=== PATIENT | male | born 1955 | race Caucasian/White ===

== ENCOUNTER 2022-07-21 08:41 | Inpatient (IN) ==
[2022-07-21] MEDS ORDERED: NS 1,000 ML IV 1,000 ML IV SCH (09:00)
[2022-07-21 13:54] LABS: BASOPHILS # (AUTO) 0.1 X10^3/uL (0.0-0.1); BASOPHILS % (AUTO) 0.8 % (0.2-1.0); EOSINOPHILS # (AUTO) 0.1 x10^3/uL (0.0-0.2); EOSINOPHILS % (AUTO) 0.5 % (0.9-2.9); HEMATOCRIT 32.9 % (42.0-54.0); HEMOGLOBIN 11.3 g/dL (13.5-18.0); LYMPHOCYTES # (AUTO) 1.9 X10^3/uL (1.3-2.9); LYMPHOCYTES % (AUTO) 16.8 % (21.0-51.0); MEAN CORPUSCULAR HEMOGLOBIN 28.3 pg (27.0-34.0); MEAN CORPUSCULAR HGB CONC 34.4 g/dL (33.0-35.0); MEAN CORPUSCULAR VOLUME 82.3 fL (80.0-100.0); MEAN PLATELET VOLUME 6.1 fL (7.4-11.0); MONOCYTES # (AUTO) 0.8 x10^3/uL (0.3-0.8); MONOCYTES % (AUTO) 6.9 % (0.0-13.0); NEUTROPHILS # (AUTO) 8.3 x10^3/uL (2.2-4.8); RED BLOOD COUNT 3.99 X10^6/uL (4.7-6.0); RED CELL DISTRIBUTION WIDTH 15.4 % (11.6-16.5); WHITE BLOOD COUNT 11.1 X10^3/uL (3.6-10.0)
[2022-07-21 14:13] LABS: PLATELET MORPHOLOGY COMMENT NORMAL (NORMAL)
[2022-07-21 14:15] LABS: ALANINE AMINOTRANSFERASE 12 Units/L (12-78); ALBUMIN 2.7 g/dL (3.4-5.0); ALKALINE PHOSPHATASE 46 Units/L (46-116); ASPARTATE AMINO TRANSFERASE 21 Units/L (15-37); BLOOD UREA NITROGEN 22 mg/dL (7-18); CALCIUM 10.1 mg/dL (8.5-10.1); CARBON DIOXIDE 28.6 mmol/L (21-32); CHLORIDE 100 mmol/L (98-107); COR CA(FOR HYPOALB) 11.1 mg/dL (8.5-10.1); CREATININE 1.09 mg/dL (0.70-1.30); FREE T4 (FREE THYROXINE) 1.34 ng/dL (0.76-1.46); MAGNESIUM 1.7 mg/dL (2.0-2.9); SODIUM 135 mmol/L (136-145); TOTAL PROTEIN 7.3 g/dL (6.4-8.2); TSH (3RD GENERATION) 0.986 uIU/mL (0.358-3.74); eGFR NON BLACK RACES > 60 (>60)
--- NOTE | 2022-07-21 14:45 | RAD ---
Chest PA and lateralIndication: Lung mass. Back pain and weight lossCOMPARISONNo recent priorFINDINGSThere is left lung opacity, probably with a component of effusion. Stent projects over the left upper chest. Left hemidiaphragm is elevated suggesting some component of atelectasis. Right lung is relatively clear. No pneumothorax seenIMPRESSIONVolume loss on the left with dense opacification, particular in left lower lobe. Underlying mass possible. Effusion possible. CT chest follow-up recommended.Electronically signed by: NIDIA MALDONADO (Jul 21, 2022 14:43:27)
[2022-07-21 15:46] LABS: BILIRUBIN,URINE NEGATIVE (NEGATIVE); BLOOD/HEMOGLOBIN,URINE NEGATIVE (NEGATIVE); GLUCOSE, URINE NEGATIVE (NEGATIVE); KETONES,URINE NEGATIVE (NEGATIVE); LEUKOCYTE ESTERASE ,URINE NEGATIVE (NEGATIVE); NITRITES,URINE NEGATIVE (NEGATIVE); PROTEIN,URINE NEGATIVE (NEGATIVE); UROBILINOGEN,URINE NORMAL (NORMAL)
[2022-07-21 15:53] LABS: APPEARANCE,URINE CLEAR (CLEAR); COLOR,URINE STRAW (YELLOW)
[2022-07-21] MEDS ORDERED: TORADOL 30 MG VIAL IVP ONE (16:20)
[2022-07-21] MEDS: PriLOSEC PO SCH ×2 (18:09→19:17)
[2022-07-21] MEDS: ZESTRIL TAB 20 MG PO SCH ×2 (18:10→19:17)
[2022-07-21] MEDS ORDERED: ZESTRIL TAB 20 MG ONE (19:13)
--- NOTE | 2022-07-21 19:44 | CT ---
HISTORYBack pain/lung mass.br.br.br.br.br CONCOMPARISONTECHNIQUEMultiple axial images of the abdomen and pelvis were obtained from the lung bases to the pubic symphysis after the administration of IV contrast. Dose reduction techniques including Automated Exposure Control (AEC) and adjustment of mA and kV were utilized.FINDINGSChest findings will be dictated under separate report. The stomach is grossly unremarkable. There is mild diffuse fatty infiltration of the liver. No liver metastasis is identified. Gallbladder, pancreas, spleen are normal. The right adrenal gland is normal. There is a low-density lesion in the left adrenal which is probably adenoma measuring up to 1.9 x 2.8 cm in size. The kidneys are normal in size and enhancement without mass, stone, or hydronephrosis. There is heterogeneous plaque in the abdominal aorta but no flow limiting stenosis. There is some prominence of the distal small bowel which measures up to 3.1 cm in diameter. The appendix is normal. There is prominence of the cecum and transverse colon filled with air and stool but without focal obstruction or transition point. The urinary bladder is normal and the prostate is normal in size. There is no worrisome bone marrow lesion. There is degeneration in the spine and in the hips.IMPRESSION1. Nonspecific prominence of small and large bowel loops filled with contrast, gas, and stool. The pattern is suggestive of ileus as there is no evidence for obstruction.2. Mild fatty infiltration of the liver.3. 1.9 x 2.8 cm left adrenal adenoma.4. Moderate to severe systemic atherosclerosis.Electronically signed by: José Luis Zaragoza (Jul 21, 2022 19:42:30)
--- NOTE | 2022-07-21 19:52 | CT ---
HISTORYBack pain/lung mass.br.br.br.br.br CONCOMPARISONRadiographs from July 21, 2022 at 11:[address] images of the chest were obtained after the administration of 100 mL Omnipaque 350 IV contrast. Images were reformatted into the coronal and sagittal planes for further evaluation.Radiation dose: 375.19 mGy-cm total DLPFINDINGSIll-defined masslike density in the left hilar region which obstructs the distal main bronchi as well as the bronchi to the upper lobe, lingula and left lower lobe.Adenopathy in the AP window, adjacent to the anterior/left margin of the trachea and in the left hilar region; individual lymph nodes are not well delineated. Left upper mediastinal lymph node measuring 2.1 cm on axial image 10. Subcarinal lymph node measuring 2.2 cm on axial image 24. Left infrahilar lymph node measuring 2 cm on axial image 24.Moderate left pleural effusion.Left pulmonary artery is narrowed through the left hilum; with no filling defect.Atelectasis in the left lower lobe.Decreased attenuation in the left upper lobe with flocculent material within the majority of the left upper lobe.Superior segment of the left lower lobe remains aerated.Right lung is clear.No pneumothorax.Left adrenal adenoma.Otherwise, the limited evaluation of is unremarkable.IMPRESSION1. Findings are consistent with a left hilar mass with metastatic adenopathy in the left hilum and mediastinum.2. Nonspecific moderate left pleural effusion.3. Atelectasis in the left lower lobe. Low-attenuation of the consolidated left upper lobe with flocculent areas within the majority of the left upper lobe is concerning for postobstructive necrotizing pneumonia.4. Left adrenal adenoma.Electronically signed by: Ilya Mckeon (Jul 21, 2022 19:50:40)
[2022-07-21] MEDS: NORCO 7.5/325 MG TAB PO PRN (22:28)
[2022-07-22] MEDS: NORCO 7.5/325 MG TAB PO PRN ×3 (04:21→18:43)
[2022-07-22 04:58] LABS: BASOPHILS # (AUTO) 0.1 X10^3/uL (0.0-0.1); BASOPHILS % (AUTO) 1.2 % (0.2-1.0); EOSINOPHILS % (AUTO) 0.4 % (0.9-2.9); HEMATOCRIT 30.9 % (42.0-54.0); HEMOGLOBIN 10.6 g/dL (13.5-18.0); LYMPHOCYTES # (AUTO) 2.4 X10^3/uL (1.3-2.9); LYMPHOCYTES % (AUTO) 21.7 % (21.0-51.0); MEAN CORPUSCULAR HEMOGLOBIN 28.3 pg (27.0-34.0); MEAN CORPUSCULAR HGB CONC 34.4 g/dL (33.0-35.0); MEAN CORPUSCULAR VOLUME 82.5 fL (80.0-100.0); MEAN PLATELET VOLUME 6.4 fL (7.4-11.0); MONOCYTES # (AUTO) 0.8 x10^3/uL (0.3-0.8); MONOCYTES % (AUTO) 7.5 % (0.0-13.0); NEUTROPHILS # (AUTO) 7.7 x10^3/uL (2.2-4.8); NEUTROPHILS % (AUTO) 69.2 % (42.0-75.0); RED BLOOD COUNT 3.75 X10^6/uL (4.7-6.0); RED CELL DISTRIBUTION WIDTH 15.4 % (11.6-16.5); WHITE BLOOD COUNT 11.1 X10^3/uL (3.6-10.0)
[2022-07-22 05:11] LABS: ALANINE AMINOTRANSFERASE 11 Units/L (12-78); ALBUMIN 2.4 g/dL (3.4-5.0); ALKALINE PHOSPHATASE 40 Units/L (46-116); ASPARTATE AMINO TRANSFERASE 22 Units/L (15-37); BLOOD UREA NITROGEN 20 mg/dL (7-18); CALCIUM 9.4 mg/dL (8.5-10.1); CARBON DIOXIDE 26.5 mmol/L (21-32); CHLORIDE 101 mmol/L (98-107); COR CA(FOR HYPOALB) 10.7 mg/dL (8.5-10.1); CREATININE 1.06 mg/dL (0.70-1.30); SODIUM 137 mmol/L (136-145); TOTAL PROTEIN 6.7 g/dL (6.4-8.2); eGFR NON BLACK RACES > 60 (>60)
[2022-07-22] MEDS ORDERED: NS 1,000 ML IV 1,000 ML IV SCH (08:00)
[2022-07-22] MEDS ORDERED: PROVENTIL NEB TX 0.083% 2.5MG/ 3ML ONE (08:08)
[2022-07-22] MEDS ORDERED: SALINE 3% 15 ML NEB TX ONE (08:14)
[2022-07-22] MEDS ORDERED: ZESTRIL TAB 20 MG ONE (08:50)
[2022-07-22] MEDS: LIPITOR TAB 80 MG PO SCH (08:57)
[2022-07-22] MEDS: ZESTRIL TAB 20 MG PO SCH ×2 (08:57→09:00)
[2022-07-22] MEDS: TRICOR TAB 48 MG PO SCH (08:57)
[2022-07-22] MEDS: PriLOSEC PO SCH (08:57)
[2022-07-22] MEDS ORDERED: PROVENTIL NEB TX 0.083% 2.5MG/ 3ML NEB SCH (09:00)
--- NOTE | 2022-07-22 09:01 | DR.H&P ---
H&P - History & Physical for Day of: H&P Date: 07/21/22 - Chief Complaint Chief Complaint: Weight loss, bone pain, fatigue, loss of appetite - History of Present Illness History of Present Illness: The patient is a 67-year-old white male who presents to the [facility] secondary to complaints of having with increased fatigue with lack of appetitie and bone pain. Patient was recently diagnosed with an ill-defined left hilar mass. Workup is pending. Patient was having issues with constipation at times as well. Patient at this time is noted to have lost 8 pounds within a two-week period. Patient states he does not have an appetite. states that he is making himself go to work. That is exhausted at the end of the day. Patient states that he feels bad. Is agreeable for admission. Family history does include father and sister having colon cancer and mother having lung cancer. - Past Medical History Past Medical History: Arthritis, Coronary Artery Disease, Dyslipidemia, Hypertension Additional Medical History: PVD, LUNG MASS - Past Surgical History Surgical History: Angioplasty/Stents - Family History Family Medical History: Cancer, [place] - Social History Does patient currently use any type of tobacco product: Yes Have you used tobacco products in the last 12 months: Yes Type of Tobacco Use: Cigarettes How many years tobacco product used: 53 Does any household member use tobacco: No Alcohol Use: None Drug Use: None Risks, benefits, and alternatives of opioids discussed: No Prescription drug monitoring program results: PDMP reviewed and no concerns identified - Medications Home Medications: No Known Drug Allergies Allergy (Verified 03/24/21 08:40) CONTINUE taking the following medications atorvastatin 80 mg tablet 1 tab PO QDAY 07/21/22 [History] fenofibrate micronized 200 mg capsule 1 cap PO QDAY 07/21/22 [History] lisinopril 20 mg tablet 1 tab PO QDAY 07/21/22 [History] naproxen 500 mg tablet 1 tab PO BID 07/21/22 [History] omeprazole 40 mg capsule,delayed release 1 cap PO QDAY 07/21/22 [History] - Review of Systems Constitutional: Weakness, Malaise Eyes: No Symptoms Reported ENT: No Symptoms Reported Respiratory: Shortness of Breath Cardiovascular: No Symptoms Reported Gastrointestinal: Other (Loss of appetite) Genitourinary: No Symptoms Reported Musculoskeletal: Shoulder Pain, Back Pain Skin: No Symptoms Reported Neurological: No Symptoms Reported - Physical Exam Vital Signs: Temperature 98.4 F Pulse Rate 89 Respiratory Rate 27 Blood Pressure 125/73 O2 Sat by Pulse Oximetry 91 Oriented: Normal, Time, Person, Place Eyes: Normal Ear: Normal Nose: Normal Throat: Normal Respiratory: LLL Diminished Cardiovascular: Normal : Normal Auscultation: Bowel Sounds: Normal Palpation: Normal Tenderness: Normal Skin: Decreased Turgur Musculoskeletal: Normal Psychiatric: Depression Mood Description: Calm Affect: Normal Speech Pattern: Clear - Assessment/Plan (1) Lung mass Status: Acute Plan: CT Lung/Abd (2) Loss of appetite Status: Acute Plan: Labs, IV Hydration (3) Bone pain Status: Acute (4) Elevated carcinoembryonic antigen (CEA) Status: Acute Plan: 57.4 - Review H&P Reviewed: Yes Patient was examined?: Yes - Allergies Allergies/Adverse Reactions: Allergies Allergy/AdvReac Type Severity Reaction Status Date / Time No Known Drug Allergies Allergy Verified 03/24/21 08:40
[2022-07-22] MEDS: LOVENOX INJ 40 MG SYR SC SCH (09:06)
[2022-07-22 09:07] LABS: ABG BASE EXCESS 4.4 mmol/L (-2.0-2.0); ABG HCO3 28.4 mmol/L (22-26)
[2022-07-22] MEDS: ZOSYN VIAL 4.5 GRAMS 4.5 G in NS 100 ML IV 100 ML IV SCH ×3 (09:30→21:00)
[2022-07-22] MEDS: PROVENTIL NEB TX 0.083% 2.5MG/ 3ML NEB SCH ×3 (11:58→18:10)
[2022-07-22 12:23] VITALS: BMI 20.3
--- NOTE | 2022-07-22 15:57 | MRI ---
HISTORYmetastatic disease. Lung mass.STUDYBRAIN W W/O CONCOMPARISONNoneTECHNIQUEMultiplanar multisequence MRI of the brain was obtained without and with contrast using standard departmental protocol.FINDINGSDiffusion sequences show no abnormal signal. No evidence for acute ischemia.Cohn and white matter have normal differentiation. There is no mass, shift, or hemorrhage. Cerebellar tonsils are at an appropriate level.There is normal signal flow void in the central vessels. No abnormal signal on susceptibility sequences.Mucosal thickening seen in the right maxillary sinus may indicate chronic sinusitis. There is no fluid to suggest acute sinusitis. No mastoid effusion.With contrast, there is no abnormal enhancement. No evidence for metastatic disease.IMPRESSION1. No evidence for metastatic disease2. No acute finding3. Chronic right maxillary sinusitisElectronically signed by: Mane Pedersen (Jul 22, 2022 15:55:06)
[2022-07-22] MEDS: PULMICORT NEB TX 0.5 MG NEB SCH (21:45)
[2022-07-23] MEDS: PROVENTIL NEB TX 0.083% 2.5MG/ 3ML NEB SCH ×3 (00:10→12:02)
[2022-07-23] MEDS: NORCO 7.5/325 MG TAB PO PRN ×2 (00:30→08:48)
[2022-07-23] MEDS: ZOSYN VIAL 4.5 GRAMS 4.5 G in NS 100 ML IV 100 ML IV SCH ×2 (05:08→14:16)
[2022-07-23 05:24] LABS: BASOPHILS # (AUTO) 0.1 X10^3/uL (0.0-0.1); LYMPHOCYTES # (AUTO) 2.4 X10^3/uL (1.3-2.9); RED BLOOD COUNT 3.72 X10^6/uL (4.7-6.0)
[2022-07-23 05:28] LABS: BASOPHILS % (AUTO) 1.2 % (0.2-1.0); EOSINOPHILS % (AUTO) 0.4 % (0.9-2.9); HEMATOCRIT 30.6 % (42.0-54.0); HEMOGLOBIN 10.4 g/dL (13.5-18.0); LYMPHOCYTES % (AUTO) 21.6 % (21.0-51.0); MEAN CORPUSCULAR HEMOGLOBIN 27.8 pg (27.0-34.0); MEAN CORPUSCULAR HGB CONC 33.8 g/dL (33.0-35.0); MEAN CORPUSCULAR VOLUME 82.3 fL (80.0-100.0); MEAN PLATELET VOLUME 6.6 fL (7.4-11.0); MONOCYTES % (AUTO) 9.3 % (0.0-13.0); NEUTROPHILS # (AUTO) 7.5 x10^3/uL (2.2-4.8); NEUTROPHILS % (AUTO) 67.5 % (42.0-75.0); RED CELL DISTRIBUTION WIDTH 15.2 % (11.6-16.5); WHITE BLOOD COUNT 11.1 X10^3/uL (3.6-10.0)
[2022-07-23 05:40] LABS: ALANINE AMINOTRANSFERASE 10 Units/L (12-78); ALBUMIN 2.3 g/dL (3.4-5.0); ALKALINE PHOSPHATASE 42 Units/L (46-116); ASPARTATE AMINO TRANSFERASE 26 Units/L (15-37); BLOOD UREA NITROGEN 18 mg/dL (7-18); CALCIUM 9.3 mg/dL (8.5-10.1); CARBON DIOXIDE 27.9 mmol/L (21-32); CHLORIDE 99 mmol/L (98-107); COR CA(FOR HYPOALB) 10.7 mg/dL (8.5-10.1); CREATININE 1.06 mg/dL (0.70-1.30); MAGNESIUM 1.6 mg/dL (2.0-2.9); SODIUM 137 mmol/L (136-145); TOTAL PROTEIN 6.6 g/dL (6.4-8.2); eGFR NON BLACK RACES > 60 (>60)
[2022-07-23] MEDS ORDERED: ZESTRIL TAB 20 MG ONE (07:26)
[2022-07-23] MEDS: PULMICORT NEB TX 0.5 MG NEB SCH (08:20)
[2022-07-23] MEDS: LIPITOR TAB 80 MG PO SCH (08:50)
[2022-07-23] MEDS: LOVENOX INJ 40 MG SYR SC SCH (08:51)
[2022-07-23] MEDS: PriLOSEC PO SCH (08:55)
[2022-07-23] MEDS: TRICOR TAB 48 MG PO SCH (08:55)
[2022-07-23] MEDS: ZESTRIL TAB 20 MG PO SCH (08:56)
--- NOTE | 2022-07-23 10:39 | NM ---
HISTORYLUNG MASS, POSSIBLE BONE METS. Hypertension. Peripheral vascular disease.STUDYBONE SCAN WHOLE BODYCOMPARISONCT chest abdomen pelvis 07/21/20225593RGPCTBGUZ93.4 mCi Tc-99m MDP were injected intravenously. Whole body images were obtained at 3 hours.FINDINGSThere is a focal area of uptake in the right calvarium. In retrospect, I can see a small area of abnormal signal in the right frontal bone on the MRI from 07/22/2022. This is centered in the diploic space. It is small so not identified on all the sequences because of gaps. But it has low T1 and high T2 signal which is nonspecific. Most common etiology might be an epidermoid or a dermoid. I believe the likelihood of metastatic disease is low but you might consider a CT of the head to determine further characterisation.Slightly heterogenous uptake is noted in the mid thoracic spine. I believe this corresponds to degenerative changes as seen on CT chest 07/21/2022.There is focal uptake in proximal left femur. The size of the uptake suggests that this should be visible on radiography. There only very subtle findings of increased sclerosis in the proximal left femur only well seen on the coronal imaging of the CT abdomen pelvis 07/21/2022. This is a finding suspicious for bone metastasis.There are additional focal areas of uptake in the right wrist, right elbow, and right AC joint worse are probably degenerative.The distribution of activity in the urinary collecting system is normal.IMPRESSION1. Focal uptake in the proximal left femur suspicious for metastatic disease2. Indeterminate uptake in the right frontal bone could be benign or malignant; recommend correlation with head CT with bone windows3. Other scattered areas of degenerative changeElectronically signed by: Mane Pedersen (Jul 23, 2022 10:38:02)
[2022-07-23 15:44] VITALS: BP 101/60
== END 2022-07-23 16:12 | disposition home or self-care (01) | DRG 204 ==
LOC: ICU
PROVIDERS: ADMIT Internal Medicine; ATTEND Internal Medicine
DX: M54.89 Other dorsalgia; R63.4 Abnormal weight loss; R91.8 Other nonspecific abnormal finding of lung field; I10 Essential (primary) hypertension; R53.81 Other malaise; E78.2 Mixed hyperlipidemia; R06.02 Shortness of breath; R63.0 Anorexia; I25.10 Atherosclerotic heart disease of native coronary artery without angina pectoris; R97.0 Elevated carcinoembryonic antigen [CEA]; K21.9 Gastro-esophageal reflux disease without esophagitis